=== PATIENT | male | born 1970 ===

== ENCOUNTER 2019-03-14 20:31 | Observation (INO) ==
[2019-03-14] MEDS ORDERED: NITROGLYCERIN 2% OINT 1 INCH/GM PACK TOP STA (20:57)
[2019-03-14] MEDS ORDERED: ONDANSETRON 4 MG/2 ML VIAL IV STA (20:57)
[2019-03-14] MEDS ORDERED: SODIUM CHLORIDE 0.9% 500 ML IV STA (20:57)
[2019-03-14] MEDS ORDERED: MORPHINE 4 MG/1 ML VIAL IV STA (20:57)
[2019-03-14] MEDS ORDERED: ASPIRIN 325 MG TABLET PO STA (20:57)
[2019-03-14 21:06] LABS: Basophils % 0.4 % (0.0-0.8); Eosinophils # 0.2 10*3/uL (0.0-0.87); Eosinophils % 1.5 % (0.00-10.9); Hematocrit 37.2 VOL% (42.0-52.0); Hemoglobin 12.1 GM/DL (14.0-18.0); Immature Granulocytes % 0.6 %; Immature Granulocytes Absolute 0.07 #; Lymphocytes % 18.6 % (21.2-54.2); Mean Corpuscular HGB Conc 32.5 GM/DL (32-36); Mean Corpuscular Volume 101.6 FL (87-102); Mean Platelet Volume 8.6 FL (9.6-12.0); Monocytes % 10.6 % (1.7-12.7); Neutrophils % 68.3 % (38.7-73.9); Platelet Count 273 T/CUMM (130-400); Red Blood Count 3.66 MC/CUMM (3.8-5.5); Red Cell Distribution Width 14.3 % (9.3-17.3)
[2019-03-14 21:15] LABS: PT Patient Result 10.7 SECS
[2019-03-14 21:33] LABS: Alanine Aminotransferase 24 U/L (16-61); Albumin 3.5 G/DL (3.4-5.0); Alkaline Phosphatase 120 U/L (45-117); Aspartate Amino Transferase 24 U/L (0-37); Blood Urea Nitrogen 13 MG/DL (7-18); Calcium 9.1 MG/DL (8.5-10.1); Glucose 103 MG/DL (74-106); Osmolality,Calculated 280.3 MOS/KG (273-304); Total Protein 6.9 G/DL (6.4-8.3)
[2019-03-14 21:40] LABS: Apearance,Urine Slightly Hazy (Clear); Bilirubin,Urine Negative (Negative); Blood, Urine Negative (Negative); Glucose,Urine (UA) Negative (Negative); Ketones,Urine Negative (Negative); Mucus,Urine Occasional /LPF (Occasional); Nitrite,Urine Negative (Negative); Protein,Urine Negative; Squamous Epithelial Cell,Urine Occasional /HPF (0-10); Urine Color Yellow (Yellow); Urine Specific Gravity 1.016 (1.001-1.035); Urine Urobilinogen < 2.0 EU/DL (0.2-1.0)
[2019-03-14 21:49] LABS: Barbiturates Screen,Urine Negative (Negative); Benzodiazepines Screen,Urine Negative (Negative); Cannabinoid Screen,Urine Positive (Negative); Opiate Screen,Urine Positive (Negative); Phencyclidine Screen,Urine Negative (Negative)
[2019-03-14] MEDS ORDERED: POTASSIUM CHLORIDE 20 MEQ TABLET PO PRN (22:58)
[2019-03-14] MEDS ORDERED: ACETAMINOPHEN 325 MG TABLET PO PRN (22:58)
[2019-03-14] MEDS ORDERED: ONDANSETRON 4 MG/2 ML VIAL IV PRN (22:58)
[2019-03-14] MEDS ORDERED: MAGNESIUM SULF RIDER 4 GM in PREMIX 1 EACH IV PRN (22:58)
[2019-03-14] MEDS ORDERED: diphenhydrAMINE CAP 25 MG CAPSULE PO PRN (22:58)
[2019-03-14] MEDS ORDERED: BISACODYL 5 MG TABLET PO PRN (22:58)
[2019-03-14] MEDS ORDERED: MAGNESIUM SULF RIDER 2 GM in PREMIX 1 EACH IV PRN (22:58)
[2019-03-14] MEDS ORDERED: guaiFENesin/DM ER 600-30 MG TABLET PO PRN (22:58)
[2019-03-14] MEDS ORDERED: NICOTINE 21 MG/24 HR PATCH TRANSDERM PRN (22:58)
[2019-03-14] MEDS ORDERED: MORPHINE 4 MG/1 ML VIAL IV PRN (22:58)
[2019-03-14 23:34] LABS: HDL Cholesterol 35 MG/DL (40-60); Risk Ratio 1.43; Thyroid Stimulating Hormone 0.927 uIU/ml (0.358-3.74); Triglycerides 313 MG/DL (2-150); VLDL CHOLESTEROL 62.6 MG/DL
[2019-03-15] MEDS: PANTOPRAZOLE 40 MG TABLET PO SCH (08:06)
[2019-03-15] MEDS: LISINOPRIL 20 MG TABLET PO SCH (08:06)
[2019-03-15] MEDS: ASPIRIN 325 MG TABLET PO SCH (08:06)
[2019-03-15] MEDS: ENOXAPARIN 40 MG/0.4 ML SYRINGE SUBCUT SCH (10:54)
[2019-03-15] MEDS ORDERED: KETOROLAC 30 MG/1 ML VIAL IM ONE (15:35)
[2019-03-16 07:53] VITALS: BP 120/74
[2019-03-16] MEDS: ASPIRIN 325 MG TABLET PO SCH (08:22)
[2019-03-16] MEDS: LISINOPRIL 20 MG TABLET PO SCH (08:22)
[2019-03-16] MEDS: PANTOPRAZOLE 40 MG TABLET PO SCH (08:22)
[2019-03-16] MEDS: ENOXAPARIN 40 MG/0.4 ML SYRINGE SUBCUT SCH (09:25)
== END 2019-03-16 11:32 | disposition home or self-care (01) ==
LOC: EDUNIT# → N.EDINP 20:31 → N.ED 20:31 → N.TELEN 23:47
PROVIDERS: ADMIT Emergency Medicine; ATTEND Emergency Medicine